=== PATIENT | female | born 1995 | race Hispanic/Latino ===

== ENCOUNTER 2017-08-21 16:36 | Emergency (ER) | payer SELFPAY ==
[2017-08-21] MEDS ORDERED: diphenhydrAMINE 25 MG CAP ONE (17:02)
[2017-08-21] MEDS ORDERED: predniSONE 20 MG TAB ONE (17:02)
== END 2017-08-21 17:05 | disposition home or self-care (01) ==
LOC: NAV ERS 16:36
DX: R21 Rash and other nonspecific skin eruption (principal)
CPT/HCPCS: 99282; J7506